=== PATIENT | male | born 1955 | race Caucasian/White ===

== ENCOUNTER 2017-06-06 12:51 | Emergency (ER) | payer OTHER ==
[2017-06-06 12:59] VITALS: BP 150/80; PULSE 85; RESP 18; TEMP 97.7
--- NOTE | 2017-06-06 13:33 | ED ---
General Adult HPI - General Chief complaint: Recheck/Abnormal Lab/Rx Stated complaint: Swelling R cheek Time Seen by Provider: 06/06/17 13:07 Source: patient Mode of arrival: EMS Limitations: no limitations - History of Present Illness Initial comments: Patient presents with sudden onset right cheek swelling, around the area of the angle of the mandible. Patient states symptoms occurred after eating, while he was cleaning up his food in the kitchen. Patient states he felt significant swelling, went to the [facility] where he could see it enlarged to the size of a golf ball. Patient admits to feeling very anxious regarding symptoms, states she has a friend with throat cancer, was concerned it could be a lymph node swelling up causing cancer. Patient denies any skin color changes, vision problems, hearing changes or ear pain. Patient denies pain with jaw movement. Denies shortness of breath, chest pain, trouble swallowing, speech problems. Patient denies any numbness or weakness. Patient never had symptoms like this before. Patient states he still feels like there is mild swelling, however symptoms appear significantly improved. Patient states he is unable to find a ride to the hospital so he called the ambulance. Patient denies any past medical history, denies any daily medications. Patient denies hypertension, high cholesterol, diabetes. Patient states he quit smoking 6 years ago. Patient denies any history of coronary artery disease or strokes. Patient denies fevers, chills, nasal congestion, rhinorrhea, sore throat. Patient states at onset of symptoms he had a funny taste in his mouth that he cannot describe further. MD Complaint: R cheek swelling Onset/Timin -: hour(s) - Related Data Allergies Allergy/AdvReac Type Severity Reaction Status Date / Time No Known Allergies Allergy Verified 06/06/17 12:59 Review of Systems ROS Statement: Those systems with pertinent positive or pertinent negative responses have been documented in the HPI. Constitutional: Denies: fever, chills, weakness Eyes: Denies: eye pain, eye discharge, vision change ENT: Reports: other (R cheek swelling). Denies: ear pain, throat pain, dental pain, hearing loss, congestion Respiratory: Denies: cough, dyspnea, stridor Cardiovascular: Denies: chest pain, palpitations, syncope Endocrine: Denies: fatigue Gastrointestinal: Denies: abdominal pain, nausea, vomiting Musculoskeletal: Denies: joint swelling Skin: Denies: rash, change in color Neurological: Denies: headache, weakness, numbness, paresthesias, confusion, vertigo Psychiatric: Reports: anxiety Past Medical History Past Medical History: Osteoarthritis (OA) History of Any Multi-Drug Resistant Organisms: None Reported Additional Past Surgical History / Comment(s): reconstruction to right leg after near amputation, eye surgery Past Psychological History: Anxiety Smoking Status: Former smoker Past Alcohol Use History: Occasional Past Drug Use History: None Reported General Exam - General Exam Comments Initial Comments: Sitting up in bed. No acute distress. Conversing normally. Calm, pleasant. Well appearing. Limitations: no limitations General appearance: alert, in no apparent distress Head exam: Present: atraumatic, normocephalic Eye exam: Present: normal appearance, PERRL, EOMI. Absent: scleral icterus, conjunctival injection, periorbital swelling, periorbital tenderness Pupils: Present: normal accommodation ENT exam: Present: normal oropharynx, mucous membranes moist, TM's normal bilaterally, normal external ear exam, other (Patient with palpable one to 2 cm swelling in the area right mandible compared to left side. No intraoral swelling, mucosal color changes, abscesses, erythema or other signs of infection appreciated. Full active and passive range of motion in the mandible without pain. No crepitus in the TMJs. No fluctuance or abscesses appreciated. Patient has upper and lower dentures. No skin color changes of the face. Muscle movements and sensation of the face intact bilaterally. No submandibular swelling. No neck swelling appreciated. Ear canals clear bilaterally.). Absent: mucous membranes dry Neck exam: Present: normal inspection, full ROM. Absent: tenderness, meningismus, lymphadenopathy, thyromegaly Respiratory exam: Present: normal lung sounds bilaterally. Absent: respiratory distress, wheezes, rales, stridor Cardiovascular Exam: Present: regular rate, normal rhythm GI/Abdominal exam: Present: soft. Absent: distended, tenderness Extremities exam: Present: other (Scarring to right lower extremity from previous traumatic injury.) Neurological exam: Present: alert, oriented X3, CN II-XII intact. Absent: altered Psychiatric exam: Present: normal affect, normal mood Skin exam: Present: warm, dry, intact, normal color. Absent: rash, cyanosis, erythema, vesicles Course Vital Signs 06/06/17 12:52 Temperature 97.7 F Pulse Rate 85 Respiratory 18 Rate Blood Pressure 150/80 O2 Sat by Pulse 95 Oximetry Medical Decision Making - Medical Decision Making Patient with sudden onset swelling in the area of the right parotid gland following a meal. Symptoms have improved since onset. Patient denies any chest pain or pain in jaw or area that would be consistent with ACS. Patient denies any numbness, weakness or other neurologic complaints, no focal neuro deficits on exam. No sign of dental infection or abscess. Patient's symptoms may be secondary to obstructed parotid gland, discussed sour candy lozenges. Patient agrees to try this at home, follow up with his primary care physician in one to 2 days. Return to ER immediately if new or worsening symptoms including signs of stroke or heart attack which were discussed. Patient understands and agrees. We'll discharge home this time. All questions answered. Patient is happy with plan of care. Disposition Clinical Impression: Swelling, cheek Disposition: HOME SELF-CARE Condition: Good Instructions: Parotid Duct Obstruction (ED) Additional Instructions: Follow-up and primary care physician office in 1-2 days for reevaluation. Return to ER immediately if new or worsening symptoms. Referrals: Jason Her MD [Primary Care Provider] - 1-2 days
== END 2017-06-06 13:44 | disposition home or self-care (01) ==
LOC: EC 12:51
DX: R22.0 Localized swelling, mass and lump, head (principal); Z87.891 Personal history of nicotine dependence
CPT/HCPCS: 99283

== ENCOUNTER 2017-08-17 09:29 | Day surgery (SDC) | payer OTHER ==
[2017-08-12 14:27] VITALS: BMI 34.5
[~2017-08-17 09:29] MED LIST: LACTATED RINGERS 1,000 ML IV SCH; LIDOCAINE 1% 20 ML VIAL (10MG/ML) FOR IV START INTRADERMA PRN
[2017-08-17 10:07] VITALS: RESP 18; TEMP 98.1
[2017-08-17] MEDS ORDERED: PROPOFOL 10 MG/ML 20 ML VIAL IV ONE (11:05)
[2017-08-17] MEDS ORDERED: LIDOCAINE 1% INJ 10MG/ML (20 ML MDV) ONE (11:05)
--- NOTE | 2017-08-17 11:16 | P.GSHP ---
History of Present Illness H&P Date: 08/17/17 Chief Complaint: GI bleed This a 61-year-old male referred from Dr. Jason Mckeon. Patient presents today for colonoscopy. He's had issues with rectal bleeding. Past Medical History Past Medical History: Osteoarthritis (OA) History of Any Multi-Drug Resistant Organisms: None Reported Past Surgical History: Orthopedic Surgery Additional Past Surgical History / Comment(s): Reconstruction to right leg after near amputation. RT Eye RETINA LASER Surgery. SINUS SURGERY. Past Anesthesia/Blood Transfusion Reactions: No Reported Reaction Smoking Status: Former smoker - Past Family History Mother Family Medical History: No Reported History Medications and Allergies Home Medications Medication Instructions Recorded Confirmed Type Etodolac [Etodolac] 500 mg PO BID 08/12/17 08/17/17 History Allergies Allergy/AdvReac Type Severity Reaction Status Date / Time No Known Allergies Allergy Verified 08/17/17 09:47 Surgical - Exam Vital Signs Temp Pulse Resp BP Pulse Ox 98.1 F 78 18 143/88 95 08/17/17 10:05 08/17/17 10:05 08/17/17 10:05 08/17/17 10:05 08/17/17 10:05 - General well developed, no distress - Eyes PERRL - ENT normal pinna - Neck no masses - Respiratory normal expansion - Cardiovascular Rhythm: regular - Abdomen Abdomen: soft, non tender Assessment and Plan Assessment: GI bleed. We'll perform We'll perform colonoscopy
--- NOTE | 2017-08-17 11:27 | P.OP ---
Date of Procedure: 08/17/17 Preoperative Diagnosis: GI bleed Postoperative Diagnosis: Internal and external hemorrhoids Procedure(s) Performed: Colonoscopy Anesthesia: MAC Surgeon: David Burnette Pathology: none sent Condition: stable Disposition: PACU Description of Procedure: The patient was placed on the endoscopy table lateral position. He received IV sedation. Digital rectal exam was performed which revealed mild internal and external hemorrhoids. Flexible colonoscope was then placed patient anus passed throughout the entire colon. The ileocecal valve was visualized. Cecum, ascending and transverse colon appeared normal. In the descending and sigmoid colon is was a few scattered diverticula. Scope was then brought back the rectum and this appeared normal. Scope was withdrawn for patient.
[2017-08-17 11:47] VITALS: BP 117/80; PULSE 68
--- NOTE | 2017-08-23 06:59 | CDI ---
Date: 08/23/17 CDS/Material [employer]vers Name: Aby Pena Phone: If any questions, call Zaida Manning Annual Giving Director at [phone] Patient Name: Douglas Nieto Admit Date: 08/17/17 Discharge Date: 08/17/17 ATTENTION: The [facility] Coding Staff appreciate your assistance in clarifying documentation. Please respond to the clarification below the line at the bottom and electronically sign. The [facility] Coding staff will review the response and follow-up if needed. Please note: Queries are made part of the Legal Health Record. If you have any questions, please contact the Annual Giving Director. Dear Dr. Burnette, Please clarify if the diagnosis of GI bleed is secondary to one of the diagnoses found during the colonoscopy. Thank you for your kind consideration. GI bleed could be a secondary diagnoses._ MTDD
== END 2017-08-17 12:37 | disposition home or self-care (01) ==
LOC: ORWHC2ENDO 09:29
PROVIDERS: ATTEND Surgery
DX: K57.30 Diverticulosis of large intestine without perforation or abscess without bleeding (principal); K64.4 Residual hemorrhoidal skin tags; K64.8 Other hemorrhoids; K92.2 Gastrointestinal hemorrhage, unspecified; M19.90 Unspecified osteoarthritis, unspecified site; Z79.1 Long term (current) use of non-steroidal anti-inflammatories (NSAID); Z87.891 Personal history of nicotine dependence
CPT/HCPCS: 45378; J2001; J2704